=== PATIENT | female | born 2000 | race African-American/Black ===

== ENCOUNTER 2025-05-24 21:27 | Day surgery (SDC) | payer OTHER ==
[2025-05-24] MEDS ORDERED: hydrALAZINE 20 MG/ML VIAL SLOW IVP PRN (21:54)
[2025-05-24 23:07] LABS: Fetal Membranes Rupture No Membranes Rupture (No Rupture)
[2025-05-24 23:38] LABS: Glucose, Urine (Dipstick) Normal (Negative); Leukocyte 100 (Negative); Protein, Urine (Dipstick) Negative (Neg-Trace); Specific Gravity, Urine 1.025 (1.005-1.030)
[2025-05-24 23:46] LABS: Bacteria/HPF 2+ HPF (None Seen); RBC/HPF None Seen HPF (0-3)
[2025-05-25 01:35] VITALS: BMI 34.7
== END 2025-05-25 00:30 | disposition home or self-care (01) ==
LOC: CSHLD/OP 21:27
PROVIDERS: ATTEND Obstetrics & Gynecology
DX: O99.891 Other specified diseases and conditions complicating pregnancy (principal); R10.30 Lower abdominal pain, unspecified; M54.50 Low back pain, unspecified; Z3A.29 29 weeks gestation of pregnancy; Z87.891 Personal history of nicotine dependence; O42.913 Preterm premature rupture of membranes, unspecified as to length of time between rupture and onset of labor, third trimester
CPT/HCPCS: 36415; 76815; 80053; 81003; 81015; 84112; 85025; 99285